=== PATIENT | female | born 1990 | race Caucasian/White ===

== ENCOUNTER → 2016-10-27 | Outpatient (CLI) | payer MEDICAID | LOC: OD 14:15 | PROVIDERS: ATTEND Family Medicine | DX: R05 Cough (principal) | CPT/HCPCS: 71020 ==

== ENCOUNTER 2016-10-29 16:35 | Emergency (ER) | payer MEDICAID ==
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
[2016-10-29 16:58] VITALS: BP 142/85
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
== END 2016-10-29 18:44 | disposition home or self-care (01) ==
LOC: ER 16:35
DX: R05 Cough (principal); R07.89 Other chest pain; K21.9 Gastro-esophageal reflux disease without esophagitis; Z90.49 Acquired absence of other specified parts of digestive tract; Z90.710 Acquired absence of both cervix and uterus
CPT/HCPCS: 71020; 99283

== ENCOUNTER → 2016-12-14 | Outpatient (CLI) | payer MEDICAID | LOC: OD 11:22 | PROVIDERS: ATTEND Family Medicine | DX: R05 Cough (principal) | CPT/HCPCS: 71020 ==